=== PATIENT | male | born 1950 | race Caucasian/White ===

== ENCOUNTER 2016-06-13 09:07 | Emergency (ER) | payer OTHER ==
--- NOTE | 2016-06-13 09:34 | PROVIDER DOCUMENTATION ---
HPI-Neurological Disorder - General Source: patient - History of Present Illness-Neuro Headache Location: reports: global Severity: reports: severe Onset/Duration: reports: 3 days ago Timing: reports: getting worse Cognitive Baseline: alert, oriented x3 Gait Baseline: walks without assistance Similar Symptoms Previously?: Yes Recently seen or treated by another doctor?: No <Gagan Clark - Last Filed: 06/13/16 11:43> <Jacky Yoon - Last Filed: 06/13/16 12:11> - General Chief Complaint: Stroke-Like Symptoms Stated Complaint: STROKE LIKE SYMPTOMS Time Seen by Provider: 06/13/16 11:43 Allergies/Adverse Reactions: Patient Allergies Allergy/AdvReac Type Severity Reaction Status Date / Time No Known Allergies Allergy Verified 06/13/16 09:50 Home Medications: ATORVAstatin [Lipitor] 80 mg PO QHS 06/13/16 Amlodipine [Norvasc] 5 mg PO DAILY 06/13/16 Baclofen 10 mg PO BID 06/13/16 Bupropion HCl [Wellbutrin Xl] 150 mg PO DAILY 06/13/16 Carvedilol 25 mg PO DAILY 06/13/16 Dutasteride [Avodart] 0.5 mg PO DAILY 06/13/16 Hydrocodone/Acetaminophen [[place] 10-325 Tablet] 1 each PO BID PRN 06/13/16 Ramipril 2.5 mg PO DAILY 06/13/16 Venlafaxine HCl [Effexor Xr] 150 mg PO DAILY 06/13/16 Warfarin Sodium [Coumadin] 10 mg PO QHS 06/13/16 Warfarin [Coumadin] 7.5 mg PO QHS 06/13/16 - History of Present Illness-Neuro Nature of Presenting Problem: reports pt has been confused with head ache x 3 days cant understand people and vision is going in and out. Hx of craniotomy and chronic headaches. She also reports pt has right sided weakness. Recently started wellabutrin. Previous hx of CVA. (Gagan Clark) Review of Systems - Adult - REVIEW OF SYSTEMS - ADULT Constitutional: denies: chills, fever, fatique Eyes: reports: no symptoms reported Ears, Nose, Mouth & Throat: reports: no symptoms reported Cardiovascular: denies: chest pain, irregular heart rate, orthopnea Respiratory: reports: no symptoms reported Gastrointestinal: reports: no symptoms reported Genitourinary: reports: no symptoms reported Musculoskeletal: reports: no symptoms reported Integumentary: reports: no symptoms reported Neurological: reports: headache/migraines, other (right sided weakness). denies : dizziness/vertigo, loss of balance, numbness, paresthesia, syncope, tremors Psychiatric: reports: no symptoms reported Endocrine: reports: no symptoms reported Hematologic/Lymphatic: reports: no symptoms reported Allergic/Immunologic: reports: no symptoms reported All Other Systems: Reviewed and Negative <ClarkGagan - Last Filed: 06/13/16 11:43> Past History - Adult - PAST MEDICAL HISTORY-ADULT Review of Records: reports: Nursing Assessment Review, Medications Reviewed Major Childhood Illnesses: reports: denies history Cardiovascular: reports: HTN, hyperlipidemia Neurological: reports: CVA, TIA - PRIOR SURGERIES/PROCEDURES Surgical/Procedure History: reports: other (lobotomy) - IMMUNIZATION STATUS Childhood Immunizations: See Nurse Assessment Flu Vaccine: See Nurse Assessment - FAMILY HISTORY Family History: reviewed, not pertinent - SOCIAL HISTORY Smoking: cigarettes, less than 1 pack/day Provider spent 3-5 mins advising pt. on dangers of tobacco.: Discussed manners to quit use, and f/u contacts for add'l counseling. Substance Use: none/never <ClarkGagan - Last Filed: 06/13/16 11:43> Physical Exam- Neurological - Physical Exam-Neuro Initial Vital Signs Reviewed: Yes General Appearance: appears well, alert, no apparent distress Eye Exam: bilateral eye: normal inspection, PERRL, EOMI HENMT: normocephalic/atraumatic, moist mucous membranes, normal ENT inspection, TMs normal, pharynx normal Head Injury: no evidence of injury Neck: non-tender, full range of motion, supple, normal inspection Respiratory: chest non-tender, lungs clear, normal breath sounds, no pleuratic chest pain, no respiratory distress, no accessory muscle use Cardiovascular: normal peripheral pulses, regular rate, rhythm, no edema, no gallop, no JVD, no murmur Abdominal Exam: normal bowel sounds, non tender, soft, no organomegaly, no pulsatile mass Lymphatic: no adenopathy Extremity: non-tender, normal inspection, no pedal edema, no calf tenderness, normal capillary refill, 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 Exam: normal hearing, normal speech, PERRL Motor/Sensory: no sensory deficit, no pronator drift, negative Babinski's sign, weak motor strength RUE, weak motor strength RLE, other (pt has previous right sided weakness motor from previous cva) Neurologic: no motor/sensory deficits Integumentary: normal color, normal turgor, warm/dry Psych/Mental Status: AL, normal mood/affect, normal thought content, normal thought process, oriented x 3 - Glascow Coma Scale Best Eye Response: (4) open spontaneously Best Verbal Response: (5) oriented Best Motor Response: (6) obeys commands Total Glascow Score: 15 <EdaurdoGagan - Last Filed: 06/13/16 11:43> Progress - EKG 1 Time of EKG reading by physician:: 09:13 EKG Read and Signed by:: Jacky Yoon EKG Interpretation (*Must complete 3 of following elements*): Abnormal Rate: 58 Rhythm: sinus mery [place]: normal QRS: normal ST Wave: non-specific ST changes - XRAY 1 XRAY: Bilateral XRAY Study: Chest Impression: Normal XRAY Interpretation: nad - CT/MRI 1 CT Study: Head Impression: Normal, See EMR Report CT Results: no blood no mass no hemm <Gagan Clark - Last Filed: 06/13/16 11:43> - REASSESSMENT Reassessment #1 Time Reassessed: 12:08 (pts main complaint is related to occipital sierra for 3 days /no new focal deficits //pts aware of ct report and dc home plan) Status: improving <Jacky Yoon - Last Filed: 06/13/16 12:11> - PLAN OF CARE/RESULTS Progress/Plan/Lab Results: Orders Category Date Time Status Cardiac Monitoring DIRECTED Care 06/13/16 09:37 Active Finger Stick Blood Sugar (ED) DIRECTED Care 06/13/16 09:37 Active Misc. NRSG Communication Order DIRECTED Care 06/13/16 09:37 Active Saline Loc NOW Care 06/13/16 09:37 Active CHEST-PORTABLE [RAD] Stat Exams 06/13/16 09:37 Completed HEAD W/O CONTRAST [CT] Stat Exams 06/13/16 09:37 Completed CBC WITH ELECTRONIC DIFF [HEME] Stat Lab 06/13/16 10:16 Completed COMPREHENSIVE METABOLIC PANEL [CHEM] Stat Lab 06/13/16 10:16 Completed PROTIME WITH INR [COAG] Stat Lab 06/13/16 10:16 Completed PTT [COAG] Stat Lab 06/13/16 10:16 Completed TROPONIN T Stat Lab 06/13/16 10:16 Completed URINALYSIS W/POSS RFLX CULT [URINALYSIS] Stat Lab 06/13/16 09:37 Uncollected URINE DRUG SCREEN Stat Lab 06/13/16 09:37 Uncollected Hydromorphone [Dilaudid] Med 06/13/16 11:36 Discontinued 1 mg IM NOW ONE Ondansetron [Zofran] Med 06/13/16 11:36 Discontinued 4 mg IV NOW ONE EKG [EKG] Stat Ther 06/13/16 09:10 Draft Vital Signs - 24 hr 06/13/16 06/13/16 09:16 11:21 Temperature 98.1 F Pulse Rate 57 L 54 L Respiratory 20 18 Rate Blood Pressure 179/77 133/70 O2 Sat by Pulse 100 97 Oximetry Laboratory Tests 06/13/16 06/13/16 06/13/16 10:16 10:16 10:16 WBC 9.37 RBC 4.91 Hgb 15.1 Hct 44.7 MCV 91.0 MCH 30.8 MCHC 33.8 RDW Std Deviation 14.1 Plt Count 176 MPV 11.2 H Neut % (Auto) 58.8 Lymph % (Auto) 33.0 Wilkes % (Auto) 5.9 Eos % (Auto) 1.8 Baso % (Auto) 0.5 Neut # (Auto) 5.51 Lymph # (Auto) 3.09 Wilkes # (Auto) 0.55 Eos # (Auto) 0.17 Baso # (Auto) 0.05 PT 30.9 H INR 2.88 PTT (Actin FS) 39.2 H Sodium 131 L Potassium 4.0 Chloride 96 L Carbon Dioxide 23 L Anion Gap 12 BUN 12 Creatinine 0.9 Estimated GFR/1.73 m2 > 60 BUN/Creatinine Ratio 13 Glucose 101 Calculated Osmolality 263 Calcium 8.5 L Total Bilirubin 0.60 AST 16 ALT 16 Alkaline Phosphatase 72 Troponin T Total Protein 6.6 Albumin 3.9 Globulin 2.7 Albumin/Globulin Ratio 1.4 06/13/16 10:16 WBC RBC Hgb Hct MCV MCH MCHC RDW Std Deviation Plt Count MPV Neut % (Auto) Lymph % (Auto) Wilkes % (Auto) Eos % (Auto) Baso % (Auto) Neut # (Auto) Lymph # (Auto) Wilkes # (Auto) Eos # (Auto) Baso # (Auto) PT INR PTT (Actin FS) Sodium Potassium Chloride Carbon Dioxide Anion Gap BUN Creatinine Estimated GFR/1.73 m2 BUN/Creatinine Ratio Glucose Calculated Osmolality Calcium Total Bilirubin AST ALT Alkaline Phosphatase Troponin T < 0.010 Total Protein Albumin Globulin Albumin/Globulin Ratio (Gagan Clark) Departure <Gagan Clark - Last Filed: 06/13/16 11:43> - Departure Time of Disposition Order: 12:10 Certified Medical Emergency: Emergent <Jacky Yoon - Last Filed: 06/13/16 12:11> - Departure DIAGNOSIS: Recurrent occipital headache, CVA, old, cognitive deficits Disposition: HOME 01 Condition: Stable Additional Instructions: ED Follow Up Instructions:follow w/neurologtist at [facility] for his head aches You have been treated by a care provider in the Emergency Department. These instructions are being provided to you so you can have an understanding of how to care for yourself upon discharge. Upon discharge from the Emergency Department, you are responsible for making arrangements for follow-up care by a physician of your choice. Take all prescribed medications as directed. Return to the Emergency Department immediately for any new or worsening symptoms. You may call the Physician Referral phone number at [phone] to obtain a list of Physicians who are taking new patients. Referrals: Davi Perez, DO [Primary Care Provider] - Instructions: Migraine Headache, [id number] Attestation - Scribe Verification/Attestation Scribe:: Gagan Clark Acting as Scribe for:: Jacky Yoon Scribe documention review:: This chart was documented by a scribe and accurately reflects the service the provider performed and the decisions made by the provider. <Gagan Clark - Last Filed: 06/13/16 11:43> Physician Attestation
[2016-06-13 10:25] LABS: MANUAL DIFF NEEDED? NO
--- NOTE | 2016-06-13 10:34 | EKG Report ---
Test Performed on : 06/13/2016 09:13:56 AM Test Reason : cp/sob Blood Pressure : / mmHG Vent. Rate : 058 BPM Atrial Rate : 058 BPM P-R Int : 158 ms QRS Dur : 100 ms QT Int : 448 ms P-R-T Axes : 038 -01 103 degrees QTc Int : 439 ms Sinus bradycardia. Nonspecific T wave abnormality Abnormal ECG When compared with ECG of 09-NOV-2011 13:34, T wave inversion more evident in Lateral leads Unconfirmed Result
--- NOTE | 2016-06-13 10:35 | Diag Imaging Result Document ---
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 This was associated with some intracerebral bleeding on the previous study of 11/09/2011. There is no evidence of mass effect, abnormal extra-axial fluid collection, or bleed at this time. Some calcifications are present in the left vertebral and both internal carotid arteries. IMPRESSION: 1. No evidence of acute intracranial disease. 2. Old postsurgical changes on the left.
--- NOTE | 2016-06-13 10:38 | Diag Imaging Result Document ---
PROCEDURE NAME: CHEST-PORTABLE - 06/13/2016 AP CHEST: FINDINGS: The inspiration is slightly less optimal than on 11/09/2011 but otherwise there has been no significant change in the appearance of the chest. IMPRESSION: Stable chest.
[2016-06-13 10:43] LABS: PTT 39.2 Seconds (22.0-36.0)
[2016-06-13 10:44] LABS: BASO% 0.5 % (0.0-0.8); EOS# 0.17 X1000 (0.0-0.7); EOS% 1.8 % (0.0-10.0); HEMATOCRIT 44.7 % (42.0-52.0); HEMOGLOBIN 15.1 g/dL (14.0-18.0); LYMPH# 3.09 X1000 (1.2-3.4); MCH 30.8 PG (27-31); MCHC 33.8 g/dL (33-37); MONO# 0.55 X1000 (0.11-0.59); MONO% 5.9 % (1.7-9.3); MPV 11.2 FL (7.4-10.4); NEUT% 58.8 % (42.2-75.2); PLT 176 X1000 (130-400); RBC 4.91 XMIL (4.7-6.1)
[2016-06-13 10:54] LABS: AGAP 12; ALBUMIN 3.9 g/dL (3.5-5.0); ALKALINE PHOSPHATASE 72 U/L (32-122); BUN 12 mg/dL (8-22); CALCIUM 8.5 mg/dL (8.8-10.2); CHLORIDE 96 mmol/L (98-107); COSMO 263; GOT 16 U/L (10-34); GPT 16 U/L (10-44); SODIUM 131 mmol/L (136-145); TCO2 23 mmol/L (25-35); TOTAL PROTEIN 6.6 g/dL (6.3-8.3)
[2016-06-13 11:07] LABS: INR 2.88; PROTIME 30.9 Seconds (9.2-11.7)
[2016-06-13] MEDS ORDERED: ZOFRAN IV ONE ×2 (11:36→12:24)
[2016-06-13] MEDS ORDERED: DILAUDID IM ONE (11:36)
[2016-06-13 12:02] LABS: URINE CULTURE NEEDED? NO; URINE MICRO REVIEW NEEDED? NO; URINE SOURCE CLEAN CATCH
[2016-06-13 12:11] LABS: BILIRUBIN URINE NEGATIVE (NEGATIVE); BLOOD URINE SMALL (NEGATIVE); COLOR YELLOW; GLUCOSE URINE NEGATIVE (NEGATIVE); LEUKOCYTES URINE NEGATIVE (NEGATIVE); NITRITE URINE NEGATIVE (NEGATIVE); PROTEIN URINE NEGATIVE (NEGATIVE); SP GRAVITY URINE 1.015; TURBIDITY URINE CLEAR (CLEAR); UROBILINOGEN URINE NORMAL (NORMAL)
[2016-06-13 12:13] LABS: UR EPITHELIAL CELLS <10 /HPF (<10); URINE BACTERIA NEGATIVE /HPF; URINE RBC <10 /HPF (<10); URINE WBC <10 /HPF (<10)
[2016-06-13 12:21] LABS: UR AMPHETAMINES QUAL NONE DETECTED (NONE DETECT); UR BARBITUATES QUAL NONE DETECTED (NONE DETECT); UR BENZODIAZEPIN QUAL NONE DETECTED (NONE DETECT); UR CANNABINOIDS QUAL NONE DETECTED (NONE DETECT); UR COCAINE QUAL NONE DETECTED (NONE DETECT); UR METHADONE QUAL NONE DETECTED (NONE DETECT); UR OPIATES QUAL PRESUMPTIVE POSITIVE (NONE DETECT); UR OXYCODONE QUAL NONE DETECTED (NONE DETECT); UR PCP QUAL NONE DETECTED (NONE DETECT)
[2016-06-13 12:27] VITALS: BP 159/84
== END 2016-06-13 12:55 | disposition home or self-care (01) ==
LOC: ED 09:07
DX: R51 Headache (principal); I69.30 Unspecified sequelae of cerebral infarction; R94.31 Abnormal electrocardiogram [ECG] [EKG]; R41.0 Disorientation, unspecified; M62.81 Muscle weakness (generalized); I10 Essential (primary) hypertension; E78.5 Hyperlipidemia, unspecified; F17.210 Nicotine dependence, cigarettes, uncomplicated; Z79.899 Other long term (current) drug therapy; Z79.01 Long term (current) use of anticoagulants; Z71.6 Tobacco abuse counseling
CPT/HCPCS: 36415; 70450; 71010; 80053; 81001; 84484; 85025; 85610; 85730; 93005; 96372; 96374; G0480; J1170; J2405